=== PATIENT | male | born 1970 | race Native Hawaiian/Other Pacific Islander ===

== ENCOUNTER 2020-01-16 09:31 | Emergency (ER) | payer OTHER ==
[~2020-01-16] VITALS: Ht 177.8 cm; Wt 90.7 kg
[2020-01-16 09:40] VITALS: BP 123/80; TEMP 98.1
[2020-01-16] MEDS ORDERED: AMLODIPINE BESYLATE PO (09:51)
[2020-01-16] MEDS ORDERED: COZAAR100 MG PO (09:51)
== END 2020-01-16 10:38 | disposition home or self-care (01) ==
LOC: ED 09:31
DX: S63.501A Unspecified sprain of right wrist, initial encounter (principal); X50.9XXA Other and unspecified overexertion or strenuous movements or postures, initial encounter
CPT/HCPCS: 99283